=== PATIENT | female | born 1960 | race Caucasian/White ===

== ENCOUNTER 2018-09-06 11:10 | Emergency (ER) | payer SELFPAY ==
[2018-09-06] MEDS: 0.9 % SODIUM CHLORIDE 1,000 ML IV ONE (11:30)
[2018-09-06] MEDS: ONDANSETRON HCL/PF 4 MG/ 2ML VIAL IVP ONE (11:30)
[2018-09-06 11:54] LABS: MEAN CORPUSCULAR HEMOGLOBIN 30.2 pg (28.0-34.0)
[2018-09-06 11:56] LABS: BASOPHILS % 0.8 % (0.0-1.5); EOSINOPHILS % 3.3 % (0.0-6.8); MONOCYTES % 7.1 % (0.0-11.0); NEUTROPHILS # 5.4 # k/uL (1.4-7.7)
[2018-09-06 12:27] LABS: eGFR (Non-African) > 60
--- NOTE | 2018-09-06 12:57 | ED Physician Documentation ---
General Adult - HISTORIAN Historian: patient - HPI Stated Complaint: n/v/d Chief Complaint: General Adult Onset: hours Further Comments: yes (58 year old female patient from [place] presents with complaint of nausea and vomiting. Cannot remember if or how many times she vomited. Patient was seen by PCP, demanded to go to ER.) - ROS CONST: no problems EYES/ENT: nasal drainage CVS/RESP: none GI/: vomiting, nausea. denies: abdominal pain, problems urinating, diarrhea MS/SKIN/LYMPH: none NEURO/PSYCH: denies: headache, fainting, dizziness, tingling, numbness, difficulty walking, difficulty with speech, anxiety, depression, other - PAST HX Past History: other (chronic hyponatremia; Quadraplegic, neuropathy, decub - coccyx, GERD, anxiety, depression) Allergies/Adverse Reactions: Allergies Allergy/AdvReac Type Severity Reaction Status Date / Time aspirin Allergy Verified 09/06/18 11:54 Penicillins Allergy Verified 09/06/18 11:54 - SOCIAL HX Smoking History: non-smoker - FAMILY HX Family History: No - VITAL SIGNS Vital Signs: Vital Signs Temp Pulse Resp BP Pulse Ox 96.9 F L 84 16 165/87 96 09/06/18 11:10 09/06/18 11:10 09/06/18 11:10 09/06/18 11:10 09/06/18 11:10 - REVIEWED ASSESSMENTS Nursing Assessment Reviewed: Yes Vitals Reviewed: Yes Progress - Progress Progress: 1300 Call to JUAN Pitts - patient's primary care provider. Updated on lab and patient status. History of chronic hyponatremia. Patient had been on salt tabs, was dc'd a few weeks ago. Will follow on outpatient bases. Ok to ne home. Updated patient on plan of care. Agrees with ne home. States nausea has resolved with zofran. ED Results Lab/Radiology - Lab Results Lab Results: Lab Results 09/06/18 09/06/18 09/06/18 11:17 11:17 11:16 WBC 8.20 K/ul K/ul (4.00-12.00) RBC 3.58 M/ul L M/ul (3.90-5.20) Hgb 10.8 g/dL L g/dL (12.0-16.0) Hct 32.9 % L % (34.5-46.5) MCV 91.0 fl fl (80.0-100.0) MCH 30.2 pg pg (28.0-34.0) MCHC 32.9 g/dL g/dL (30.0-36.0) RDW 14.4 % H % (11.3-14.3) Plt Count 417 K/mm3 H K/mm3 (130-400) Neut % (Auto) 66.3 % % (39.0-79.0) Lymph % (Auto) 22.5 % % (16.0-50.0) [place] % (Auto) 7.1 % % (0.0-11.0) Eos % (Auto) 3.3 % % (0.0-6.8) Baso % (Auto) 0.8 % % (0.0-1.5) Neut # (Auto) 5.4 # k/uL # k/uL (1.4-7.7) Lymph # (Auto) 1.8 # k/uL # k/uL (0.6-4.0) [place] # (Auto) 0.6 # k/uL # k/uL (0.0-0.9) Eos # (Auto) 0.3 # k/uL # k/uL (0.0-0.6) Baso # (Auto) 0.1 # k/uL # k/uL (0.0-0.5) Sodium 122 mmol/L L mmol/L (136-145) Potassium 3.6 mmol/L mmol/L (3.5-5.1) Chloride 85 mmol/L L mmol/L (98-107) Carbon Dioxide 25 mmol/L mmol/L (22-30) BUN 11 mg/dL mg/dL (7-17) Creatinine 0.27 mg/dL L mg/dL (0.52-1.04) Estimated Creat Clear 226 Est GFR ( Amer) > 60 (60 - ) Est GFR (Non-Af Amer) > 60 (60 - ) Glucose 112 mg/dL H mg/dL (74-106) Calcium 8.7 mg/dL mg/dL (8.4-10.2) Total Bilirubin < 0.1 mg/dL L mg/dL (0.2-1.3) AST 38 U/L U/L (15-46) ALT 20 U/L U/L (13-69) Alkaline Phosphatase 191 U/L H U/L (38-126) Total Protein 9.3 g/dL H g/dL (6.3-8.2) Albumin 4.3 g/dL g/dL (3.5-5.0) Influenza Type A Ag Negative (NEGATIVE) Influenza Type B Ag Negative (NEGATIVE) - Orders Orders: ED Orders Category Date Time Status Further Nursing Orders 1T Care 09/06/18 11:17 Active CBC/PLATELET/DIFF Stat Lab 09/06/18 11:16 Completed CMP Stat Lab 09/06/18 11:17 Completed INFLUENZA A&B Stat Lab 09/06/18 11:17 Completed PHENYTOIN LEVEL (DILANTIN) Stat Lab 09/06/18 Received UA W/MICRO IF INDICATED Stat Lab 09/06/18 11:17 Ordered 0.9 % Sodium Chloride [Normal Saline] 1,000 ml Med 09/06/18 11:17 Discontinued IV NOW Ondansetron HCl/Pf [Zofran] Med 09/06/18 11:17 Discontinued 4 mg IVP NOW ONE General Adult Physical Exam - PHYSICAL EXAM GENERAL APPEARANCE: [id number] N EENT: eye inspection normal, ROBERTA, other (frequently spitting - clear sputum) RESPIRATORY: no resp distress, chest non-tender, breath sounds normal CVS: reg rate & rhythm, heart sounds normal, equal pulses, no murmur, no gallop, PMI nml, no JVD, no friction rub, 24 ABDOMEN: soft, no organomegaly, normal bowel sounds, no abdominal bruit, no distension SKIN: normal color, warm/dry, NR, INT, PAL, DR EXTREMITIES: non-tender, normal range of motion, no evidence of injury, no edema, J, [employer] NEURO: oriented X3, CN's nml as tested, motor nml, sensation nml, mood/affect nml Discharge Clincal Impression: Chronic hyponatremia Referrals: Corey Khalil DO [Primary Care Provider] - 2 Days Comments: Continue all treatments and medications. PCP to follow up on sodium level Condition: Stable Disposition: HOME, SELF-CARE Decision to Admit: NO Decision Time: 13:01
[2018-09-06 14:24] VITALS: BP 147/85
[2018-09-06 14:43] LABS: APPEARANCE,URINE CLEAR (CLEAR); COLOR,URINE YELLOW (YELLOW); OCCULT BLOOD,URINE NEGATIVE (NEGATIVE); UROBILINOGEN URINE 0.2 Eu (0.2-1.0)
== END 2018-09-06 13:30 | disposition home or self-care (01) ==
LOC: ED 11:10
DX: E87.1 Hypo-osmolality and hyponatremia (principal)
CPT/HCPCS: 36415; 51702; 80053; 80185; 81002; 85025; 87400; 96365; 96375; 99283; 99284; J2405; J7030; S1016